=== PATIENT | female | born 1945 | race Caucasian/White ===

== ENCOUNTER 2021-06-07 12:30 | Outpatient (CLI) | payer MEDICARE, SELFPAY ==
--- NOTE | 2021-06-07 12:44 | USCV_ITS ---
Marina Brennan Age: 76 Gender: F : 1945 Exam Date: 06/07/2021 13:58 Ordering Phys: Dona Montes MD Technologist: DALTON Exam Location: [facility] [place] Indication: Dyspnea BP: 132 / 67 HR: 77 Rhythm: Sinus Technical Quality: Suboptimal MEASUREMENTS (Male / Female) Normal Values 2D ECHO LV Diastolic Diameter PLAX 4.3 cm 4.2 - 5.9 / 3.9 - 5.3 cm LV Systolic Diameter PLAX 2.9 cm IVS Diastolic Thickness 1.1 cm 0.6 - 1.0 / 0.6 - 0.9 cm IVS Systolic Thickness 1.5 cm LVPW Diastolic Thickness 1.1 cm 0.6 - 1.0 / 0.6 - 0.9 cm LVPW Systolic Thickness 1.6 cm LVOT Diameter 2.0 cm LV Ejection Fraction 2D Teich 61.6 % LV Ejection Fraction MOD 2C 48.8 % LV Ejection Fraction 2C AL 47.3 % LA Diameter 2.3 cm M-MODE Aortic Annulus Diameter 3.2 cm LA Ao Ratio MM 0.6 MV E Point Septal Separation 0.5 cm DOPPLER AV Peak Velocity 130.0 cm/s LVOT Peak Velocity 98.0 cm/s AV Area Cont Eq vti 2.3 cm squared AV Area Cont Eq pk 2.4 cm squared MV Area PHT 5.0 cm squared Mitral E to A Ratio 1.3 MV E' Velocity 41.0 cm/s Mitral E to MV E' Ratio 7.1 Mitral E to LV E' Lateral Ratio 8.9 Mitral E to LV E' Septal Ratio 5.9 TR Peak Velocity 245.5 cm/s TR Peak Gradient 24.1 mmHg TR Mean Velocity 210.5 cm/s TR Mean Gradient 18.3 mmHg TR Velocity Time Integral 78.1 cm PV Peak Velocity 77.0 cm/s FINDINGS Left Ventricle Technically limited quality echocardiogram because of poor ultrasonic windows. Grossly LV systolic function is mildly reduced. Accurate assessment of ejection fraction is not possible because of suboptimal visualization of cardiac structures. Right Ventricle The right ventricle is normal in size and function. Right Atrium The right atrium is normal in size. Left Atrium The left atrium is normal in size. Mitral Valve Structurally normal mitral valve without significant stenosis or prolapse. There is no mitral regurgitation. Aortic Valve Structurally normal aortic valve without significant sclerosis or stenosis. There is mild to moderate aortic regurgitation. Tricuspid Valve Structurally normal tricuspid valve without significant stenosis. Mild tricuspid regurgitation. Pulmonary artery systolic pressure is normal. Pulmonic Valve Not well visualized Pericardium Normal pericardium without effusion. Aorta Normal ascending aorta dimension. CONCLUSIONS Technically limited quality echocardiogram because of poor ultrasonic windows. Grossly LV systolic function is mildly reduced. Accurate assessment of LV systolic function is not possible because of limited visualization of cardiac structures. Mild to moderate aortic regurgitation. Mild tricuspid regurgitation. No comparison studies are available. Telly Graham MD (Electronically Signed) Final Date: 20 Jun 2021 10:38 S
== END 2021-06-07 12:31 | disposition home or self-care (01) ==
LOC: RAD 12:42
PROVIDERS: Visit Provider Family Medicine
DX: R93.89 Abnormal findings on diagnostic imaging of other specified body structures (principal); R06.00 Dyspnea, unspecified; I51.7 Cardiomegaly; K76.9 Liver disease, unspecified
CPT/HCPCS: 93306

== ENCOUNTER 2021-06-08 12:08 | Outpatient (CLI) | payer MEDICARE, SELFPAY ==
--- NOTE | 2021-06-08 12:16 | CT_ITS ---
WS: [id number] CT CHEST WITH INTRAVENOUS CONTRAST HISTORY: ABNORMAL FINDINGS ON DIAGNOSTIC IMAGING, history of enlarged heart. TECHNIQUE: Contiguous 5 mm axial imaging performed on the thorax. Coronal and sagittal reformats are submitted. All CT scans at [facility] use at least one of these dose optimization techniques: automated exposure control; mA and/or kV adjustment per patient size (includes targeted exams where dose is matched to clinical indication); or iterative reconstruction. CONTRAST: Omnipaque 350; 95 mL IV. DLP: 664.23 mGy.cm COMPARISON: None available. Lungs and central airway: Mildly spiculated V-shaped nodule RIGHT upper lobe measures 1.5 x 0.5 cm. A dditional nodular opacification in the more inferior RIGHT upper lobe in a tree-in-bud distribution. Benign granuloma or lymph node along the short fissure. Pleura: Normal. No pleural effusion. Heart and pericardium: Mildly deformed heart and mild cardiomegaly. In part this may be based upon a pectus excavatum deformity. Mediastinum and michelle: No mediastinum or hilar adenopathy. Vessels: Mild atherosclerosis aorta. Pulmonary artery size is mildly enlarged. Chest wall and lower neck: No soft tissue masses. Upper abdomen: Low-attenuation 10 mm nodule LEFT lobe of the liver. Hounsfield units are low suggesti ng this is a cyst. Additional hypodensity in the posterior RIGHT lobe of the liver measures 9 mm. No bile duct dilatation. Only partially visualized gallbladder. Incomplete visualization of the pancreas . Cortical thinning LEFT kidney upper pole. Mild hyperplasia LEFT adrenal gland. Osseous structures: Mild pectus excavatum. Reverse S-shaped thoracolumbar scoliosis. CT/CT chest w con* [id number] IMPRESSION: 1. RIGHT upper lobe V-shaped spiculation and additional tree-in-bud opacificat ion. May be postinflammatory. Recommend follow-up chest CT in 3-4 months with I V contrast for further evaluation. 2. No adenopathy. 3. Minimal enlargement of the heart chambers. If the heart was enlarged radiog raphically that may have been secondary to the mild pectus excavatum deformity which will cause enlargement of the cardiac silhouette by chest radiograph. No prior studies for comparison. 4. Low-attenuation lesions in the liver. These can be further evaluated on the follow-up chest CT. Favor these are probably cysts.
[2021-06-08 13:00] LABS: Blood Urea Nitrogen 14 mg/dL (8-23)
[2021-06-08] MEDS: iohexol 350 mg/mL 100 mL Btl IV (13:03)
== END 2021-06-08 12:09 | disposition home or self-care (01) ==
PROVIDERS: Visit Provider Family Medicine
DX: R93.89 Abnormal findings on diagnostic imaging of other specified body structures (principal); K76.9 Liver disease, unspecified
CPT/HCPCS: 71260; 82565; 84520